=== PATIENT | female | born 1955 | race Caucasian/White ===

== ENCOUNTER 2023-04-02 23:37 | Inpatient (IN) | payer OTHER ==
[2023-04-03 01:45] LABS: #Monocytes 0.5 thou/uL (0.11-0.59); #Neutrophils 4.2 thou/uL (1.40-6.50); %Basophils 0.5 % (0.0-1.0); %Eosinophils 0.4 % (0.0-10.0); %Lymphocytes 13.7 % (21.0-51.0); %Monocytes 8.2 % (0.0-10.0); %Neutrophils 75.2 % (42.0-75.0); Hematocrit 42.9 % (36.0-47.0); Hemoglobin 14.2 g/dL (12.0-16.0); Mean Corpuscular HGB CONC 33.1 g/dL (32.0-36.0); Mean Corpuscular Hemoglobin 34.7 pg (27.0-31.0); Mean Corpuscular Volume 104.9 fl (78.0-98.0); Mean Platelet Volume 8.8 fL (7.4-10.4); Platelet Count 172 10x3/uL (130-400); RBC Distribution Width 15.1 % (11.5-14.5); Red Blood Cell (RBC) Count 4.09 mill/uL (4.20-5.40); White Blood Cell (WBC) Count 5.6 10x3/uL (4.8-10.8)
[2023-04-03] MEDS ORDERED: Dexamethasone 10 MG/ML VIAL ONE ×2 (01:54→15:39)
[2023-04-03] MEDS ORDERED: levETIRAcetam 500 MG (5 mL) VIAL ONE ×2 (01:54→10:40)
[2023-04-03 02:11] LABS: Troponin I Less than 0.010 ng/mL (< 0.028)
[2023-04-03 02:13] LABS: ALT (SGPT) 26 U/L (8-55); AST (SGOT) 17 U/L (5-34); Albumin 3.4 g/dL (3.4-4.8); Alkaline Phosphatase 65 U/L (40-110); Anion Gap 10 mmol/L (10-20); BUN (Urea Nitrogen) 22 mg/dL (9.8-20.1); Bilirubin, Total 0.6 mg/dL (0.2-1.2); Calc. Creatinine Clearance 0 mL/min (70-130); Calcium 8.6 mg/dL (7.8-10.44); Carbon Dioxide 26 mmol/L (23-31); Chloride 103 mmol/L (98-107); Estimated GFR 99; Globulin 2.7 g/dL (2.4-3.5); Glucose 98 mg/dL (80-115); Potassium 3.8 mmol/L (3.5-5.1); Protein, Total 6.1 g/dL (5.8-8.1); Sodium 135 mmol/L (136-145)
[2023-04-03] MEDS ORDERED: Electrolyte Replacement Protocol 1 EACH IVPB SCH (02:17)
[2023-04-03] MEDS ORDERED: Ondansetron PF 4 MG/2 ML Vial IVP PRN (02:17)
[2023-04-03 03:21] LABS: Lactic Acid 1.8 mmol/L (0.5-2.2)
[2023-04-03 03:31] LABS: Alcohol Less than 10.0 mg/dL (Less than 10); Lipase 25 U/L (8-78); Phosphorus 3.1 mg/dL (2.3-4.7)
[2023-04-03] MEDS ORDERED: hydrALAZINE 20 MG/ML VIAL SLOW IVP PRN (03:37)
[2023-04-03 07:52] LABS: #Monocytes 0.2 thou/uL (0.11-0.59); #Neutrophils 4.9 thou/uL (1.40-6.50); %Basophils 0.5 % (0.0-1.0); %Lymphocytes 10.7 % (21.0-51.0); %Monocytes 2.9 % (0.0-10.0); %Neutrophils 84.2 % (42.0-75.0); Hematocrit 44.5 % (36.0-47.0); Mean Corpuscular HGB CONC 33.7 g/dL (32.0-36.0); Mean Corpuscular Hemoglobin 35.1 pg (27.0-31.0); Mean Corpuscular Volume 104.2 fl (78.0-98.0); Mean Platelet Volume 9.2 fL (7.4-10.4); Platelet Count 165 10x3/uL (130-400); Red Blood Cell (RBC) Count 4.27 mill/uL (4.20-5.40); White Blood Cell (WBC) Count 5.9 10x3/uL (4.8-10.8)
[2023-04-03 08:10] LABS: ALT (SGPT) 28 U/L (8-55); AST (SGOT) 19 U/L (5-34); Albumin 3.9 g/dL (3.4-4.8); Alkaline Phosphatase 74 U/L (40-110); Anion Gap 13 mmol/L (10-20); BUN (Urea Nitrogen) 16 mg/dL (9.8-20.1); Bilirubin, Total 0.8 mg/dL (0.2-1.2); Calc. Creatinine Clearance 0 mL/min (70-130); Calcium 9.3 mg/dL (7.8-10.44); Carbon Dioxide 24 mmol/L (23-31); Chloride 105 mmol/L (98-107); Estimated GFR 98; Globulin 3.1 g/dL (2.4-3.5); Glucose 110 mg/dL (80-115); Potassium 4.2 mmol/L (3.5-5.1); Sodium 138 mmol/L (136-145)
[2023-04-03] MEDS: Dexamethasone 10 MG in Sodium Chloride 0.9% 50 ML IVPB SCH (08:28)
[2023-04-03 08:36] LABS: Bilirubin Negative (Negative); Blood, Urine Negative (Negative); CAUTI Indications for Culture Alt mental st,lethar; Glucose, Urine (Dipstick) Normal (Negative); Ketone, Urine Negative (Negative); Leukocyte 500 Leu/uL (Negative); Nitrite Negative (Negative); Protein, Urine (Dipstick) Negative (Neg-Trace); RBC/HPF 0-3 HPF (0-3); Specific Gravity, Urine 1.008 (1.002-1.036); Squamous Epithelial None Seen HPF (0-3); Urobilinogen Normal mg/dL (Less than 2); WBC/HPF 21-50 HPF (0-3); pH, Urine 7.5 (5.0-9.0)
[2023-04-03 09:02] LABS: Bacteria/HPF 1+ HPF (None Seen); Clarity Hazy (Clear)
[2023-04-03 09:04] LABS: Urine Culture Reflex Yes Yes
[2023-04-03] MEDS ORDERED: Magnesium 2 GM/50 ML BAG (IN WATER) ONE (09:51)
[2023-04-03] MEDS: Magnesium 2 GM/50 ML(in water) 2 GM in Premix 1 BAG IVPB SCH (10:25)
[2023-04-03] MEDS ORDERED: Furosemide 40 MG (4 mL) VIAL ONE (10:40)
[2023-04-03] MEDS ORDERED: Pantoprazole 40 MG VIAL ONE (10:40)
[2023-04-03] MEDS ORDERED: Magnevist 469MG/ML 20 ML VIAL ONE (10:44)
[2023-04-03] MEDS: Furosemide 40 MG (4 mL) VIAL SLOW IVP SCH (10:51)
[2023-04-03] MEDS: levETIRAcetam 500 MG (5 mL) VIAL SLOW IVP SCH (10:51)
[2023-04-03] MEDS: Pantoprazole 40 MG VIAL IVP SCH (10:51)
[2023-04-04 06:13] VITALS: BMI 37.8
[2023-04-04 06:53] LABS: #Monocytes 0.5 thou/uL (0.11-0.59); #Neutrophils 5.9 thou/uL (1.40-6.50); %Basophils 0.1 % (0.0-1.0); %Lymphocytes 9.1 % (21.0-51.0); %Monocytes 6.5 % (0.0-10.0); Hematocrit 38.9 % (36.0-47.0); Hemoglobin 13.3 g/dL (12.0-16.0); Mean Corpuscular HGB CONC 34.2 g/dL (32.0-36.0); Mean Corpuscular Hemoglobin 34.2 pg (27.0-31.0); Mean Platelet Volume 9.1 fL (7.4-10.4); Platelet Count 198 10x3/uL (130-400); RBC Distribution Width 14.7 % (11.5-14.5); Red Blood Cell (RBC) Count 3.89 mill/uL (4.20-5.40); White Blood Cell (WBC) Count 7.1 10x3/uL (4.8-10.8)
[2023-04-04 07:20] LABS: ALT (SGPT) 21 U/L (8-55); AST (SGOT) 13 U/L (5-34); Alkaline Phosphatase 56 U/L (40-110); Anion Gap 9 mmol/L (10-20); BUN (Urea Nitrogen) 18 mg/dL (9.8-20.1); Bilirubin, Total 0.5 mg/dL (0.2-1.2); Calc. Creatinine Clearance 155 mL/min (70-130); Calcium 8.5 mg/dL (7.8-10.44); Carbon Dioxide 29 mmol/L (23-31); Chloride 103 mmol/L (98-107); Estimated GFR 98; Globulin 2.5 g/dL (2.4-3.5); Glucose 141 mg/dL (80-115); Potassium 3.6 mmol/L (3.5-5.1); Protein, Total 5.5 g/dL (5.8-8.1); Sodium 137 mmol/L (136-145)
[2023-04-04] MEDS ORDERED: Ondansetron ODT 8 MG TAB PO PRN (17:04)
[2023-04-04] MEDS: ONDANSETRON 8 MG PO SCH (19:24)
[2023-04-04] MEDS: Dexamethasone 4 MG TAB PO SCH (19:24)
[2023-04-04] MEDS: TEMOZOLOMIDE PO SCH (20:22)
[2023-04-04] MEDS: [UNRECOGNIZED DRUG - OTHER] PO SCH (20:23)
[2023-04-04] MEDS: Sulfameth/Trimethoprim DS 800-160mg TAB PO SCH (20:25)
[2023-04-04] MEDS ORDERED: TEMOZOLOMIDE 140 MG PO SCH (21:00)
[2023-04-05 06:28] LABS: #Monocytes 0.6 thou/uL (0.11-0.59); #Neutrophils 5.3 thou/uL (1.40-6.50); %Basophils 0.3 % (0.0-1.0); %Lymphocytes 9.7 % (21.0-51.0); %Monocytes 9.1 % (0.0-10.0); %Neutrophils 79.3 % (42.0-75.0); Hematocrit 39.4 % (36.0-47.0); Hemoglobin 13.3 g/dL (12.0-16.0); Mean Corpuscular HGB CONC 33.8 g/dL (32.0-36.0); Mean Corpuscular Hemoglobin 34.8 pg (27.0-31.0); Mean Platelet Volume 9.2 fL (7.4-10.4); Platelet Count 180 10x3/uL (130-400); RBC Distribution Width 14.7 % (11.5-14.5); Red Blood Cell (RBC) Count 3.82 mill/uL (4.20-5.40); White Blood Cell (WBC) Count 6.7 10x3/uL (4.8-10.8)
[2023-04-05 06:43] LABS: ALT (SGPT) 20 U/L (8-55); AST (SGOT) 14 U/L (5-34); Alkaline Phosphatase 60 U/L (40-110); Anion Gap 13 mmol/L (10-20); BUN (Urea Nitrogen) 24 mg/dL (9.8-20.1); Bilirubin, Total 0.4 mg/dL (0.2-1.2); Calc. Creatinine Clearance 0 mL/min (70-130); Calcium 8.5 mg/dL (7.8-10.44); Carbon Dioxide 23 mmol/L (23-31); Chloride 104 mmol/L (98-107); Estimated GFR 96; Globulin 2.6 g/dL (2.4-3.5); Glucose 118 mg/dL (80-115); Potassium 4.1 mmol/L (3.5-5.1); Protein, Total 5.6 g/dL (5.8-8.1); Sodium 136 mmol/L (136-145)
[2023-04-05 06:44] LABS: Mean Corpuscular Volume 103.1 fl (78.0-98.0)
[2023-04-05 07:33] VITALS: BP 159/78; TEMP 98.3
[2023-04-05] MEDS: Furosemide 40 MG TAB PO SCH (07:35)
[2023-04-05] MEDS ORDERED: TEMOZOLOMIDE PO SCH (09:00)
[2023-04-05] MEDS: Hydrochlorothiazide 25 MG TAB PO SCH (09:37)
[2023-04-06] MEDS ORDERED: Sulfameth/Trimethoprim DS 800-160mg TAB PO SCH (09:00)
== END 2023-04-05 17:24 | disposition home or self-care (01) | DRG 54 ==
LOC: ERS 23:37 → ERHOLD 04-03 00:53 → MSONC 04-03 22:29
PROVIDERS: ADMIT Student in an Organized Health Care Education/Training Program; ATTEND Student in an Organized Health Care Education/Training Program
DX: C71.9 Malignant neoplasm of brain, unspecified (principal); G93.41 Metabolic encephalopathy; G93.6 Cerebral edema; G93.5 Compression of brain; I50.30 Unspecified diastolic (congestive) heart failure; Z88.8 Allergy status to other drugs, medicaments and biological substances; Z79.899 Other long term (current) drug therapy; Z79.82 Long term (current) use of aspirin; Z96.652 Presence of left artificial knee joint; Z98.890 Other specified postprocedural states; I11.0 Hypertensive heart disease with heart failure; R19.7 Diarrhea, unspecified; Z66 Do not resuscitate
CPT/HCPCS: 36415; 36416; 70450; 70553; 71045; 80053; 80307; 81001; 82533; 83605; 83690; 83735; 84100; 84443; 84484; 85025; 87040; 87086; 93005; A9579; C9113; J1100; J1940; J1953; J3475; J8540

== ENCOUNTER 2023-05-06 13:10 | Outpatient (CLI) | payer OTHER | END 2023-05-06 13:11 | disposition home or self-care (01) | LOC: RAD 13:10 | PROVIDERS: ATTEND Internal Medicine Hematology & Oncology | DX: C71.1 Malignant neoplasm of frontal lobe (principal) | CPT/HCPCS: 71046 ==

== ENCOUNTER 2023-07-14 15:57 | Outpatient (CLI) | payer OTHER | END 2023-07-14 15:58 | disposition home or self-care (01) | LOC: RAD 15:57 | PROVIDERS: ATTEND Nurse Practitioner Adult Health | DX: C71.1 Malignant neoplasm of frontal lobe (principal) | CPT/HCPCS: 71046; 80053; 82248; 83615; 84100; 84550 ==

== ENCOUNTER 2023-08-04 08:32 | Outpatient (CLI) | payer OTHER | END 2023-08-04 08:33 | disposition home or self-care (01) | LOC: CT 08:32 | PROVIDERS: ATTEND Student in an Organized Health Care Education/Training Program | DX: J45.909 Unspecified asthma, uncomplicated (principal); R06.02 Shortness of breath; R07.9 Chest pain, unspecified; C71.9 Malignant neoplasm of brain, unspecified; Z98.890 Other specified postprocedural states | CPT/HCPCS: 70553; 71250 ==

== ENCOUNTER 2023-08-05 12:48 | Inpatient (IN) | payer OTHER ==
[~2023-08-05 12:48] MED LIST: Iopamidol-370 76% 500 ML MDV (1 ML CHARGE) ONE
[2023-08-05] MEDS ORDERED: Furosemide 40 MG (4 mL) VIAL ONE (14:17)
[2023-08-05 14:30] LABS: #Basophils Less than 0.03 10x3/uL (0.0-0.2); #Eosinphils Less than 0.03 10x3/uL (0.0-0.7); %Basophils 0.2 % (0.0-1.0); %Lymphocytes 7.7 % (21.0-51.0); %Monocytes 5.2 % (0.0-10.0); %Neutrophils 85.1 % (42.0-75.0); Hematocrit 41.4 % (36.0-47.0); Hemoglobin 13.8 g/dL (12.0-16.0); Mean Corpuscular HGB CONC 33.3 g/dL (32.0-36.0); Mean Corpuscular Hemoglobin 36.6 pg (27.0-31.0); Mean Corpuscular Volume 109.8 fL (78.0-98.0); Platelet Count 187 10x3/uL (130-400); RBC Distribution Width 15.8 % (11.5-14.5); Red Blood Cell (RBC) Count 3.77 mill/uL (4.20-5.40)
[2023-08-05 14:57] LABS: ALT (SGPT) 89 U/L (8-55); AST (SGOT) 54 U/L (5-34); Albumin 3.6 g/dL (3.4-4.8); Alkaline Phosphatase 102 U/L (40-110); Anion Gap 19 mmol/L (10-20); BUN (Urea Nitrogen) 40 mg/dL (9.8-20.1); Bilirubin, Total 0.4 mg/dL (0.2-1.2); Calc. Creatinine Clearance 0 mL/min (70-130); Calcium 9.4 mg/dL (7.8-10.44); Carbon Dioxide 29 mmol/L (23-31); Chloride 101 mmol/L (98-107); Estimated GFR 61; Globulin 3.8 g/dL (2.4-3.5); Glucose 147 mg/dL (80-115); Magnesium 2.5 mg/dL (1.6-2.6); Potassium 3.8 mmol/L (3.5-5.1); Protein, Total 7.4 g/dL (5.8-8.1); Sodium 145 mmol/L (136-145)
[2023-08-05 14:59] LABS: Troponin I 0.026 ng/mL (< 0.028)
[2023-08-05] MEDS ORDERED: Heparin 5,000 UNITS/ML VIAL ONE ×2 (16:16→16:18)
[2023-08-05] MEDS ORDERED: Heparin 25,000 units/D5W 500 ML ONE (16:18)
[2023-08-05 16:48] LABS: INR-International Normal Ratio 0.9; Prothrombin Time 12.3 sec (12.0-14.7)
[2023-08-05 16:51] LABS: PTT 22.5 sec (22.9-36.1)
[2023-08-05] MEDS ORDERED: Ondansetron ODT 8 MG TAB PO PRN (17:09)
[2023-08-05] MEDS ORDERED: Heparin 25,000 units/D5W 500 ML IVPB SCH (17:15)
[2023-08-05] MEDS ORDERED: Heparin 10,000 UNITS/ 10 ML VIAL SLOW IVP SCH (17:15)
[2023-08-05] MEDS ORDERED: Albuterol 200 PUFF INH INH PRN (17:15)
[2023-08-05 19:20] LABS: PTT Greater than 250.0 sec (22.9-36.1)
[2023-08-05] MEDS ORDERED: AIRSUPRA INH SCH (21:00)
[2023-08-05] MEDS ORDERED: hydrOXYzine 25 MG TAB PO PRN (21:07)
[2023-08-05 21:32] LABS: Prothrombin Time 13.5 sec (12.0-14.7)
[2023-08-05 21:39] LABS: PTT 182.4 sec (22.9-36.1)
[2023-08-05 21:47] LABS: Troponin I 0.019 ng/mL (< 0.028)
[2023-08-05] MEDS: Furosemide 40 MG TAB PO SCH (22:07)
[2023-08-05] MEDS: levETIRAcetam 500 MG TAB PO SCH (22:07)
[2023-08-05] MEDS: Dexamethasone 4 MG TAB PO SCH (22:07)
[2023-08-06 05:54] VITALS: BMI 41.3
[2023-08-06 06:12] LABS: #Basophils Less than 0.03 10x3/uL (0.0-0.2); #Eosinphils Less than 0.03 10x3/uL (0.0-0.7); %Basophils 0.1 % (0.0-1.0); %Lymphocytes 8.1 % (21.0-51.0); %Monocytes 5.4 % (0.0-10.0); %Neutrophils 84.7 % (42.0-75.0); Hematocrit 35.1 % (36.0-47.0); Hemoglobin 11.9 g/dL (12.0-16.0); Mean Corpuscular HGB CONC 33.9 g/dL (32.0-36.0); Mean Corpuscular Hemoglobin 37.1 pg (27.0-31.0); Mean Corpuscular Volume 109.3 fL (78.0-98.0); Mean Platelet Volume 8.9 fL (7.4-10.4); Platelet Count 156 10x3/uL (130-400); RBC Distribution Width 15.5 % (11.5-14.5); Red Blood Cell (RBC) Count 3.21 mill/uL (4.20-5.40)
[2023-08-06 06:23] LABS: ALT (SGPT) 72 U/L (8-55); AST (SGOT) 37 U/L (5-34); Albumin 2.9 g/dL (3.4-4.8); Alkaline Phosphatase 89 U/L (40-110); Anion Gap 17 mmol/L (10-20); BUN (Urea Nitrogen) 31 mg/dL (9.8-20.1); Bilirubin, Total 0.5 mg/dL (0.2-1.2); Calc. Creatinine Clearance 138 mL/min (70-130); Calcium 8.6 mg/dL (7.8-10.44); Carbon Dioxide 29 mmol/L (23-31); Chloride 102 mmol/L (98-107); Estimated GFR 84; Globulin 3.1 g/dL (2.4-3.5); Glucose 142 mg/dL (80-115); Potassium 3.6 mmol/L (3.5-5.1); Sodium 144 mmol/L (136-145)
[2023-08-06 07:26] LABS: PTT Greater than 250.0 sec (22.9-36.1)
[2023-08-06] MEDS: Potassium Chloride 20 MEQ TAB PO SCH (07:57)
[2023-08-06] MEDS: Polyethylene Glycol 3350 17 GM Packet PO SCH (07:58)
[2023-08-06] MEDS: Pantoprazole DR 40 MG TAB PO SCH (07:58)
[2023-08-06] MEDS: Hydrochlorothiazide 25 MG TAB PO SCH (07:58)
[2023-08-06] MEDS: Losartan 25 MG TAB PO SCH (07:58)
[2023-08-06] MEDS ORDERED: TEMOZOLOMIDE PO SCH (09:00)
[2023-08-06 19:55] LABS: PTT 128.1 sec (22.9-36.1)
[2023-08-06] MEDS: hydrOXYzine 25 MG TAB PO PRN (21:15)
[2023-08-07 05:22] LABS: PTT 128.2 sec (22.9-36.1)
[2023-08-07] MEDS ORDERED: fentaNYL 50 mcg/mL 1 mL Vial ONE (08:01)
[2023-08-07] MEDS ORDERED: Iopamidol 370 76% 100 ML VIAL ONE (10:05)
[2023-08-07] MEDS: Apixaban 2.5 MG TAB PO SCH (20:09)
[2023-08-08 06:22] LABS: #Basophils Less than 0.03 10x3/uL (0.0-0.2); #Eosinphils Less than 0.03 10x3/uL (0.0-0.7); %Basophils 0.1 % (0.0-1.0); %Lymphocytes 9.6 % (21.0-51.0); %Monocytes 3.1 % (0.0-10.0); %Neutrophils 86.2 % (42.0-75.0); Hematocrit 34.7 % (36.0-47.0); Hemoglobin 11.7 g/dL (12.0-16.0); Mean Corpuscular HGB CONC 33.7 g/dL (32.0-36.0); Mean Corpuscular Hemoglobin 36.9 pg (27.0-31.0); Mean Corpuscular Volume 109.5 fL (78.0-98.0); Mean Platelet Volume 8.8 fL (7.4-10.4); Platelet Count 136 10x3/uL (130-400); RBC Distribution Width 15.1 % (11.5-14.5); Red Blood Cell (RBC) Count 3.17 mill/uL (4.20-5.40)
[2023-08-08 06:49] LABS: ALT (SGPT) 76 U/L (8-55); AST (SGOT) 35 U/L (5-34); Albumin 2.6 g/dL (3.4-4.8); Alkaline Phosphatase 83 U/L (40-110); Anion Gap 16 mmol/L (10-20); BUN (Urea Nitrogen) 25 mg/dL (9.8-20.1); Bilirubin, Total 0.5 mg/dL (0.2-1.2); Calc. Creatinine Clearance 161 mL/min (70-130); Calcium 8.6 mg/dL (7.8-10.44); Carbon Dioxide 28 mmol/L (23-31); Chloride 101 mmol/L (98-107); Estimated GFR 96; Globulin 3.2 g/dL (2.4-3.5); Glucose 134 mg/dL (80-115); Potassium 3.5 mmol/L (3.5-5.1); Protein, Total 5.8 g/dL (5.8-8.1); Sodium 141 mmol/L (136-145)
[2023-08-08] MEDS: HYDROcodone/Acetaminophen 10/325 mg Tablet PO PRN (20:36)
[2023-08-09 05:32] LABS: #Basophils Less than 0.03 10x3/uL (0.0-0.2); #Eosinphils Less than 0.03 10x3/uL (0.0-0.7); %Basophils 0.1 % (0.0-1.0); %Eosinophils 0.1 % (0.0-10.0); %Lymphocytes 9.5 % (21.0-51.0); %Monocytes 5.8 % (0.0-10.0); %Neutrophils 82.6 % (42.0-75.0); Hematocrit 36.8 % (36.0-47.0); Hemoglobin 12.7 g/dL (12.0-16.0); Mean Corpuscular HGB CONC 34.5 g/dL (32.0-36.0); Mean Corpuscular Hemoglobin 37.6 pg (27.0-31.0); Mean Corpuscular Volume 108.9 fL (78.0-98.0); Mean Platelet Volume 9.6 fL (7.4-10.4); Platelet Count 168 10x3/uL (130-400); Red Blood Cell (RBC) Count 3.38 mill/uL (4.20-5.40)
[2023-08-09 06:13] LABS: ALT (SGPT) 65 U/L (8-55); AST (SGOT) 29 U/L (5-34); Albumin 2.8 g/dL (3.4-4.8); Alkaline Phosphatase 83 U/L (40-110); Anion Gap 14 mmol/L (10-20); BUN (Urea Nitrogen) 28 mg/dL (9.8-20.1); Bilirubin, Total 0.4 mg/dL (0.2-1.2); Calc. Creatinine Clearance 129 mL/min (70-130); Calcium 8.9 mg/dL (7.8-10.44); Carbon Dioxide 28 mmol/L (23-31); Chloride 101 mmol/L (98-107); Estimated GFR 81; Globulin 3.5 g/dL (2.4-3.5); Glucose 132 mg/dL (80-115); Potassium 3.7 mmol/L (3.5-5.1); Protein, Total 6.3 g/dL (5.8-8.1); Sodium 139 mmol/L (136-145)
[2023-08-09 11:43] VITALS: BP 131/87; TEMP 98
== END 2023-08-09 16:52 | disposition home or self-care (01) | DRG 299 ==
LOC: ERS 12:48 → ERHOLD 16:41 → IMCU/EMU 20:43 → SURG A 08-08 18:02
PROVIDERS: ADMIT Student in an Organized Health Care Education/Training Program; ATTEND Student in an Organized Health Care Education/Training Program
PROC: 06H03DZ Insertion of Intraluminal Device into Inferior Vena Cava, Percutaneous Approach (ICD-10-PCS; principal; 2023-08-07)
DX: I82.411 Acute embolism and thrombosis of right femoral vein (principal); I26.99 Other pulmonary embolism without acute cor pulmonale; J96.01 Acute respiratory failure with hypoxia; C71.9 Malignant neoplasm of brain, unspecified; I50.32 Chronic diastolic (congestive) heart failure; Z68.41 Body mass index [BMI] 40.0-44.9, adult; Z51.5 Encounter for palliative care; Z66 Do not resuscitate; I82.442 Acute embolism and thrombosis of left tibial vein; M71.22 Synovial cyst of popliteal space [Baker], left knee; J45.909 Unspecified asthma, uncomplicated; E66.01 Morbid (severe) obesity due to excess calories; M71.21 Synovial cyst of popliteal space [Baker], right knee; G40.909 Epilepsy, unspecified, not intractable, without status epilepticus; I11.0 Hypertensive heart disease with heart failure; Z96.652 Presence of left artificial knee joint; Z88.0 Allergy status to penicillin; Z88.8 Allergy status to other drugs, medicaments and biological substances; Z79.899 Other long term (current) drug therapy; Z98.890 Other specified postprocedural states
CPT/HCPCS: 36415; 37191; 71046; 71275; 80053; 83735; 83880; 84484; 85025; 85610; 85730; 93005; 93306; 93970; 96374; 96375; C1769; C1880; C1894; J1642; J1644; J1940; J3010; J8540; Q9967